=== PATIENT | male | born 1970 | race African-American/Black ===

== ENCOUNTER → 2016-07-14 | Outpatient (CLI) | payer OTHER ==
--- NOTE | 2016-07-15 11:38 | DIREP ---
PROCEDURE:US TESTICULAR COMPARISON:None. INDICATIONS:I86.1 SCROTAL VARICES TECHNIQUE:The scrotum was evaluated with da silva scale, spectral analysis, and color duplex doppler sonography. FINDINGS: RIGHT TESTICLE: measures 4.2 x 1.8 x 3.1 cm in length. No mass or microcalcifications. LEFT TESTICLE: measures 4.0 x 1.5 x 2.4 cm in length. No mass or microcalcifications. EPIDIDYMIS:Negative. OTHER:Bilateral scrotal varicoceles are present which appear large in size and more pronounced on the right. DOPPLER FLOW: Symmetric waveforms with sustained diastolic flow. CONCLUSION: 1. Bilateral large scrotal varicoceles, right worse than left. Dictated by: Kervin Darden M.D. on 07/15/2016 at 11:27 AM
== END | disposition home or self-care (01) ==
LOC: RAD 13:42
PROVIDERS: ATTEND Urology
DX: I86.1 Scrotal varices (principal)
CPT/HCPCS: 76870